=== PATIENT | female | born 1945 | race Caucasian/White ===

== ENCOUNTER 2025-03-10 12:03 | Outpatient (CLI) | payer MEDICARE, OTHER ==
[~2025-03-10 12:03] MED LIST: ATOR40TA PO; CHOL100046 PO; COU2.5T PO; CYAN1TAB41 PO; ESTR0.5T29 PO; HYDR-4353 PO; LEVO100T PO; LISI1TAB49 PO; PANT40TA54 PO; SOTA80TA73 PO
--- NOTE | 2025-03-10 13:07 | RADIOLOGY REPORT ---
EXAM: CT CT LUMBAR SPINE HISTORY: LOW BACK PAIN,SPONDYLOSIS W/O MYELOPATHY OR RADICULOPATHY, LUMBAR REGION COMPARISON: None TECHNIQUE: Noncontrast axial CT images of the lumbar spine were performed. Sagittal and coronal refor matted images were obtained. This CT exam was performed using one or more of the following dose reduc tion techniques: Automated exposure control, adjustment of the mA and/or kv according to patient size , or the use of iterative reconstruction techniques. Radiation Dose: CT Dose: CTDI volume is 10.44 mGy. Dose-length product is 352.23 mGy*cm FINDINGS: No fracture or listhesis are identified in the lumbar spine. There is lumbar levoscoliosis. There is moderate to advanced lumbar degenerative disc disease and facet arthropathy, greater in the lower lev els. There is significant neural foraminal stenosis at L4-L5 and L5-S1 on the left. There is mild spi nal canal stenosis L2-L3 and L3-L4. There is a lumbosacral transitional vertebrae. There is left caryl al midpole cortical scarring. There are atherosclerotic calcifications of the abdominal aorta. There are sigmoid and descending colon diverticula without evidence of acute diverticulitis, although the colon is not fully imaged here. IMPRESSION: 1. No fracture of the lumbar spine. 2. Moderate to severe lower lumbar degenerative disc disease and facet arthropathy, with significant neural foraminal stenosis on the left at L4-L5 and L5-SThese findings May correspond to left lower ex tremity radicular symptoms in the L4 and L5 nerve root distributions. 3. Lumbar levoscoliosis. 4. Descending and sigmoid colon diverticulosis without evidence of acute diverticulitis. The colon i s not fully imaged here.
== END 2025-03-10 23:59 | disposition home or self-care (01) ==
LOC: RAD 12:03
PROVIDERS: ATTEND Physical Medicine & Rehabilitation
DX: M51.16 Intervertebral disc disorders with radiculopathy, lumbar region (principal); M47.26 Other spondylosis with radiculopathy, lumbar region; M54.59 Other low back pain; M47.816 Spondylosis without myelopathy or radiculopathy, lumbar region; M48.061 Spinal stenosis, lumbar region without neurogenic claudication
CPT/HCPCS: 72131

== ENCOUNTER 2025-08-05 09:35 | Outpatient (CLI) | payer MEDICARE, OTHER ==
--- NOTE | 2025-08-05 11:16 | RADIOLOGY REPORT ---
EXAM: CT CT ABDOMEN PELVIS HISTORY: LEFT LOWER QUADRANT PAIN Comparison Study: None Exam Date: 08/05/2025 10:40 AM Radiation Dose Information: CT Dose: CTDI volume is 9.4 mGy. Dose-length product is 477 mGy*cm Technique: Multidetector CT of the abdomen and pelvis was performed. Imaging was performed without IV contrast. Axial, coronal and sagittal multiplanar reformats were obtained from the axial data set by the technologist. Findings: Lack of intravenous contrast compromises evaluation of perfusion and for isodense lesions. Lower chest: Clear. Liver: Unremarkable Biliary system: Unremarkable Spleen: Unremarkable Pancreas: Unremarkable. Adrenals: Unremarkable. Kidneys and ureters: No hydronephrosis. Small right renal cysts. Left lower pole scarring. Bowel: No obstruction. Normal appendix. Diffuse colonic diverticula. Bladder: Unremarkable Reproductive organs: No abnormal mass. Lymph nodes: Unremarkable. Peritoneum: Unremarkable Vessels: Patency not evaluated on this noncontrast study. Bones and soft tissue: No aggressive osseous lesion IMPRESSION: No acute CT findings in the abdomen and pelvis. Diffuse colonic diverticula. No acute diverticulitis.
--- NOTE | 2025-08-05 12:11 | RADIOLOGY REPORT ---
INDICATION: PELVIC AND PERINEAL PAIN TECHNIQUE: Multiple real-time grayscale transabdominal sonographic images along with color and duplex Doppler of the uterus and ovaries were obtained. COMPARISON: None FINDINGS: Uterus surgically removed. Ovaries not visualized. Bladder measures 82 cc. IMPRESSION: Uterus surgically removed. Ovaries not visualized. Bladder measures 82 cc.
== END 2025-08-05 23:59 | disposition home or self-care (01) ==
LOC: RAD 09:35
PROVIDERS: ATTEND Family Medicine
DX: K57.30 Diverticulosis of large intestine without perforation or abscess without bleeding (principal); R10.20 Pelvic and perineal pain unspecified side; R10.32 Left lower quadrant pain; J98.4 Other disorders of lung; N28.1 Cyst of kidney, acquired; Z90.710 Acquired absence of both cervix and uterus
CPT/HCPCS: 74176; 76857

== ENCOUNTER 2025-08-31 12:13 | Emergency (ER) | payer MEDICARE, OTHER ==
[~2025-08-31] VITALS: Ht 162.6 cm; Wt 61.6 kg
[2025-08-31 12:17] VITALS: BP 179/108; PULSE 68; RESP 18; O2SAT 99
--- NOTE | 2025-08-31 14:39 | Physician Documentation ---
History of Present Illness ~ Chief Complaint: Wound Stated Complaint: WOUND Time Seen by MD: 14:05 Primary Medical Doctor: Kimberly Mccallum [facility] HPI 80 y/o female sent to ED for evaluation of open L tib/fib wound w/o fracture note on X ray 08/13. Pt was on course of ABX yet wound has been slow to heal. No reported fevers yet pain seems worse. Tetanus within 5 years?: No Medication Reconciliation Allergies: Coded Allergies: Penicillins (Verified Allergy, Unknown, 08/31/25) Scheduled Atorvastatin Calcium* (Lipitor*), 1 TAB PO DAILY, (Reported) Cholecalciferol (Vitamin D), 1 CAP PO DAILY, (Reported) Cyanocobalamin/Folic Acid (Vitamin R20-Ppqcg Acid Tablet), 1 TAB PO DAILY, (Reported) Estradiol (Estradiol), 2 TABLET PO DAILY, (Reported) Levothyroxine Sodium (Synthroid), 1 TAB PO DAILY, (Reported) Lisinopril/Hydrochlorothiazide (Lisinopril-Hctz 10-12.5 mg Tab), 1 TAB PO DAILY, (Reported) Pantoprazole Sodium (Pantoprazole Sodium), 1 TAB PO DAILY, (Reported) Sotalol Hcl* (Betapace*), 80 MG PO BID, (Reported) Warfarin Sodium* (Coumadin*), 1 TAB PO DAILY, (Reported) Scheduled PRN Hydrocodone Bit/Acetaminophen (Perry 10-325 Tablet), 1 TAB PO PRN PRN for pain, (Reported) Review of Systems All Other Systems at this time: Reviewed and Negative Constitutional: Reports: see HPI Musculoskeletal: Reports: see HPI Integumentary: Reports: see HPI Physical Exam Vital Signs: RN Vital Signs have been reviewed: Yes, Temperature: 98.2, Source: Temporal, Heart Rate: 68, Respiratory Rate: 18, BP: 179/108, Pulse Oximetry: 99, Weight: 61.600 Oxygen Flow Rate: 0 General Appearance: alert, WD/WN, mild distress EENT: normal ENT inspection Neck: non-tender Cardiovascular: normal peripheral pulses Respiratory: no respiratory distress Chest: no accessory muscle use Extremities .5 cm open wound with 2 x 2 seroma to the lateral aspect of the distal portion of the wound. Patient is grossly neurologically intact. Dorsiflexion and plantar flexion inversion and eversion intact dorsalis pedis intact. No signs of infection. Skin: warm/dry Neurologic: oriented x4 Lymphatics: normal inspection Psychiatric: normal mood/affect Progress Results/Orders Results/Orders Orders - BREN HARRISON PAC Ct Lower Extremity (08/31/25 15:30) * Iv Access / Saline Lock * (08/31/25 14:39) Completed Orders - BREN HARRISON PAC Ct Lower Extremity (08/31/25 15:30) BMP (08/31/25 14:39) Cbc/Diff (08/31/25 14:39) C-Reactive Protein (08/31/25 14:39) Iohexol 300mg/Ml 100ml Inj. (Omnipaque-3 (08/31/25 15:24) Vital Signs 08/31/25 12:17 Temp 98.2 Pulse 68 Resp 18 B/P (MAP) 179/108 Pulse Ox 99 O2 Flow Rate 0 Laboratory Tests Test 08/31/25 14:50 White Blood Count 10.5 Red Blood Count 4.00 L Hemoglobin 13.5 Hematocrit 40.1 Mean Corpuscular Volume 100.1 H Mean Corpuscular Hemoglobin 33.8 H Mean Corpuscular Hemoglobin Concent 33.8 Red Cell Distribution Width 13.7 Platelet Count 326 Mean Platelet Volume 8.1 Neutrophils (%) (Auto) 63.1 Lymphocytes (%) (Auto) 26.0 Monocytes (%) (Auto) 9.3 Eosinophils (%) (Auto) 0.9 Basophils (%) (Auto) 0.7 Neutrophils # (Auto) 6.6 Lymphocytes # (Auto) 2.7 Monocytes # (Auto) 1.0 H Eosinophils # (Auto) 0.1 Basophils # (Auto) 0.1 CBC Comment Sodium Level 139 Potassium Level 3.8 Chloride Level 106 Carbon Dioxide Level 24.4 Anion Gap 9 Blood Urea Nitrogen 7 Creatinine 0.48 Estimated GFR/1.73 m2 > 90 BUN/Creatinine Ratio 14.6 Glucose Level 93 Calcium Level 8.7 C-Reactive Protein 0.42 Albumin 3.7 Chemistry Comments Medical Decision Making Additional information obtaine: old records Findings 80-year-old female who is sent today in the emergency department for evaluation of delayed wound healing to the left distal tibia. PCP's inpatient in the emergency department for advanced imaging to evaluate for osteo process. CT imaging obtained reassuring for no evidence of osteo. Seroma is present. Patient is referred back to primary care physician for lateral evaluation to the [facility] orthopedist for definitive wound management. Patient is provided crutches and asked to be nonweightbearing and to keep wound clean and dry. Discharged safely with family member. Differential Dx:Considerations: Include: Abscess, Cellulitis, Dressing change, Healing wound, Other (Osteo, Seroma) Departure Disposition: HOME / SELF CARE / HOMELESS Impression: Primary Impression: Left lower tibia open wound with delayed healing Condition: Stable Discharge Instructions: How to Change Your Wound Dressing Additional Instructions: Today in the emergency department you had CT imaging of your left lower extremity. There was no evidence for the CT read of osteomyelitis. I have provided another course of antibiotics. You would benefit from orthopedic follow up for consideration of wound closure, seroma evacuation and definitive wound care. Please presenting to your primary care physician next 24 or 48 hours for lateral referral to the orthopedist. Please begin antibiotics as directed and be nonweightbearing as much as possible. Thank you for visiting emergency department [facility]. Referrals: NO PRIMARY CARE PROVIDER (PCP) Prescriptions Doxycycline Monohydrate (Doxycycline Monohydrate) 100 Mg Capsule 100 MG PO BID, #14 CAP may sub doxycycline hyclate or azithromycin z-pack as prescribed Prov: BREN HARRISON PAC 08/31/25 Education Educated: Patient Educated regarding: diagnosis, treatment, prognosis, need for follow up Signature Scribe Signature: . Attestation: . BREN HARRISON PAC Aug 31, 2025 14:39
[2025-08-31 15:08] LABS: MEAN PLATELET VOLUME 8.1 FL (7.4-10.4); RED CELL DISTRIBUTION WIDTH 13.7 % (11.5-14.5)
[2025-08-31 15:19] LABS: CREATININE 0.48 MG/DL (0.40-0.90); TOTAL CARBON DIOXIDE 24.4 MMOL/L (24-32); eCRCL 82 ML/MIN; eGFR > 90 ML/MIN
[2025-08-31] MEDS ORDERED: iohexol 300mg/ml 100ml inj. ONE (15:24)
--- NOTE | 2025-08-31 16:11 | RADIOLOGY REPORT ---
EXAM: CT CT LOWER EXTREMITY W/ IV CONTRAST INDICATION: PCP suspect Osteo/Open wound x 18 days over distal tib/Unable to have MRI TECHNIQUE: Axial images of left lower extremity with intravenous contrast have been obtained along with coronal and sagittal reformatted images. All CT scans at this facility use dose modulation, iterative reconstruction, and/or weight based dosing when appropriate to reduce radiation dose to as low as reasonably achievable. COMPARISON: None FINDINGS: BONES: No underlying reaction suggest osteomyelitis. No CT evidence of an acute fracture or aggressive osseous lesion. MUSCLES: Large area deep soft tissue ulceration along the anterior aspect of the distal calf with the adjacent large area of oval-shaped increased density which may reflect hemorrhagic versus proteinaceous abscess and/or phlegmon with overall size measuring 3.6 x 1.5 cm. JOINT SPACES: No joint effusion. TENDONS/LIGAMENTS: Intact. OTHER: No abnormal CT apparent infectious process extending deep below the investing fascia. IMPRESSION: 1. Large area deep soft tissue ulceration along the anterior aspect of the distal calf with the adjacent large area of oval-shaped increased density which may reflect hemorrhagic versus proteinaceous abscess and/or phlegmon with overall size measuring 3.6 x 1.[address] evidence of an acute fracture or aggressive osseous lesion.
[2025-08-31] MEDS ORDERED: DOXY100C43 PO (16:23)
[2025-08-31 16:49] VITALS: TEMP 98.2
== END 2025-08-31 16:50 | disposition home or self-care (01) ==
LOC: ER 12:13
DX: S71.102A Unspecified open wound, left thigh, initial encounter (principal); Z88.0 Allergy status to penicillin; Z79.899 Other long term (current) drug therapy; X58.XXXA Exposure to other specified factors, initial encounter; Y93.89 Activity, other specified; Y92.89 Other specified places as the place of occurrence of the external cause; Y99.8 Other external cause status
CPT/HCPCS: 36415; 73701; 80048; 85025; 86140; 99285; A6402; Q9967; A6449